=== PATIENT | male | born 2000 | race Caucasian/White ===

== ENCOUNTER 2021-10-28 17:45 | Emergency (ER) | payer OTHER ==
[~2021-10-28] VITALS: Ht 175.3 cm; Wt 100.0 kg
[2021-10-28] MEDS ORDERED: LIDOCAINE 5% TRANSDERMAL PATCH TD ONE (18:45)
[2021-10-28] MEDS ORDERED: CYCLOBENZAPRINE HCL 10 MG TABLET PO ONE (18:45)
[2021-10-28] MEDS ORDERED: MORPHINE SULFATE 4 MG/ML SYRINGE IM ONE (18:45)
[2021-10-28 21:23] VITALS: BP 137/86
== END 2021-10-28 21:32 | disposition home or self-care (01) ==
LOC: EMS 17:49
DX: M54.50 Low back pain, unspecified (principal)
CPT/HCPCS: 96372; 99283; J2270